=== PATIENT | male | born 1995 | race Two or more races ===

== ENCOUNTER → 2024-11-01 | Outpatient (REF) | payer OTHER ==
[2024-11-01 18:18] LABS: APPEARANCE, URINE HAZY (CLEAR); BACTERIA, URINE AUTO NEGATIVE (NEGATIVE); BILIRUBIN, URINE AUTO NEGATIVE (NEGATIVE); BLOOD, URINE BLOOD NEGATIVE (NEGATIVE); GLUCOSE, URINE (UA) AUTO NEGATIVE (NEGATIVE); KETONE, URINE AUTO NEGATIVE (NEGATIVE); LEUKOCYTE ESTERASE, URINE AUTO NEGATIVE (NEGATIVE); MUCUS, URINE SMALL (NEGATIVE); NITRITE, URINE AUTO NEGATIVE (NEGATIVE); PROTEIN, URINE AUTO NEGATIVE (NEGATIVE); RBC, URINE AUTO 0 /HPF (0-3); SPECIFIC GRAVITY URINE AUTO 1.020 (1.002-1.035); SQUAMOUS EPITHELIAL CELL UR AU 0 /HPF (0-6); UROBILINOGEN, URINE AUTO 2.0 mg/dL (0.0-2.0); WBC, URINE AUTO 0 /HPF (0-3)
[2024-11-01 18:47] LABS: AMPHETAMINES URINE REFLEX NEGATIVE (NEGATIVE); BARBITURATES URINE REFLEX NEGATIVE (NEGATIVE); BENZODIAZEPINES URINE REFLEX NEGATIVE (NEGATIVE); CANNABINOIDS URINE REFLEX NEGATIVE (NEGATIVE); COCAINE METABOLITE URINE REFLE NEGATIVE (NEGATIVE); METHADONE URINE REFLEX NEGATIVE (NEGATIVE); OPIATES URINE REFLEX NEGATIVE (NEGATIVE); PHENCYCLIDINE URINE REFLEX NEGATIVE (NEGATIVE)
[2024-11-01 18:48] LABS: ALT/SGPT 20 U/L (7.0-40); AST/SGOT 20 U/L (<34); BASO # 0.0 10^3/uL (0.0-0.2); BASO % 0.6 % (0.0-1.0); CALCIUM LEVEL 9.9 MG/DL (8.5-10.1); CARBON DIOXIDE LEVEL 29 MMOL/L (20-31); CHLORIDE LEVEL 102 MMOL/L (98-107); CHOLESTEROL LEVEL 224 MG/DL (<200); CHOLESTEROL RISK RATIO 2.04 (<5); CREATININE FOR GFR 1.01 MG/DL (0.70-1.30); EOS # 0.1 10^3/uL (0.0-0.5); EOS % 1.5 % (0.0-3.0); GLOMERULAR FILTRATION RATE > 90.0 (>60); LDL CHOLESTEROL 95.6 MG/DL (<100); LYMPH # 1.6 10^3/uL (1.5-5.0); LYMPH % 29.7 % (24.0-44.0); MONO # 0.6 10^3/uL (0.0-0.8); MONO % 10.6 % (2.0-8.0); NEUTROPHILS # 3.0 10^3/uL (1.5-8.5); NEUTROPHILS % 57.2 % (36.0-66.0); NON-HDL-C 114.6 MG/DL; PLATELET COUNT, AUTOMATED 261 10^3/uL (150-450); POTASSIUM SERUM 3.9 MMOL/L (3.5-5.1); SODIUM LEVEL 140 MMOL/L (136-145); TRIGLYCERIDES LEVEL 95 MG/DL (<150)
[2024-11-01 18:50] LABS: VITAMIN B12 LEVEL 316 PG/ML (211-911)
[2024-11-01 18:55] LABS: ETHYL ALCOHOL (ETHANOL) < 0.003 % (0.000-0.010)
[2024-11-01 18:59] LABS: HEPATITIS B SURFACE ANTIBODY POSITIVE (POSITIVE)
[2024-11-01 19:23] LABS: HIV 1&2 SCREEN NEGATIVE (NEGATIVE)
[2024-11-01 19:32] LABS: HEPATITIS C VIRUS ABY INDEX < 0.02 INDEX (<0.8)
[2024-11-01 19:58] LABS: ESTIMATED AVERAGE GLUCOSE 105.0 MG/DL (60-110)
== END ==
LOC: M SFHCLERA 11:53
PROVIDERS: ATTEND Internal Medicine
DX: R53.83 Other fatigue (principal); F10.10 Alcohol abuse, uncomplicated

== ENCOUNTER → 2025-01-18 | Outpatient (CLI) | payer OTHER | LOC: M RAD 08:53 | PROVIDERS: ATTEND Internal Medicine | DX: F10.10 Alcohol abuse, uncomplicated (principal) ==